=== PATIENT | male | born 1990 | race Caucasian/White ===

== ENCOUNTER 2019-07-06 06:54 | Emergency (ER) | payer SELFPAY ==
[~2019-07-06] VITALS: Ht 165.1 cm; Wt 97.5 kg
[2019-07-06] MEDS ORDERED: FLOMAX0.4 MG PO (08:27)
[2019-07-06] MEDS ORDERED: ONDANSETRON ODT8 MG PO (08:27)
[2019-07-06] MEDS ORDERED: NORCO 7.5-3251 EACH PO (08:27)
== END 2019-07-06 08:35 | disposition home or self-care (01) ==
LOC: ED 06:54
DX: N20.1 Calculus of ureter (principal); Z87.442 Personal history of urinary calculi
CPT/HCPCS: 80053; 81001; 85025; 96374; 96375; 99284-25; J1885; J2405